=== PATIENT | female | born 1945 | race Caucasian/White ===

== ENCOUNTER 2023-06-19 17:03 | Emergency (ER) | payer OTHER, MEDICAID ==
[~2023-06-19] VITALS: Ht 157.5 cm; Wt 56.7 kg
[2023-06-19 17:05] VITALS: BP_SYST 116; PULSE 68; RESP 20; TEMP 96.7; O2SAT 96
[2023-06-19] MEDS ORDERED: DICL25TA PO (18:12)
[2023-06-19 18:24] VITALS: BP_SYST 136; PULSE 74; RESP 20; TEMP 98.4; O2SAT 98
== END 2023-06-19 18:24 | disposition home or self-care (01) ==
LOC: SED 17:03
DX: M17.11 Unilateral primary osteoarthritis, right knee (principal); M25.561 Pain in right knee; Z79.899 Other long term (current) drug therapy
CPT/HCPCS: 73564; 99283